=== PATIENT | male | born 1945 | race African-American/Black ===

== ENCOUNTER 2017-04-29 13:16 | Emergency (ER) | payer MEDICARE | END 2017-04-29 15:38 | disposition home or self-care (01) | LOC: MADERS 13:16 | DX: F43.0 Acute stress reaction (principal); I10 Essential (primary) hypertension; E11.9 Type 2 diabetes mellitus without complications; F41.9 Anxiety disorder, unspecified; F20.9 Schizophrenia, unspecified; Z79.84 Long term (current) use of oral hypoglycemic drugs; Z79.82 Long term (current) use of aspirin; Z79.899 Other long term (current) drug therapy | CPT/HCPCS: 99284 ==

== ENCOUNTER 2019-08-27 20:02 | Emergency (ER) | payer MEDICARE ==
--- NOTE | 2019-08-27 20:46 | CT ---
CT Brain WO Con History: Trauma Comparison: None. Findings: No acute hemorrhage or infarct. No midline shift or mass effect. Ventricular size and extra -axial CSF spaces are normal. Since mucosal thickening right maxillary sinus with near-complete opacification. Globes are intact. Impression: No acute posttraumatic intracranial sequelae.
--- NOTE | 2019-08-27 20:48 | CT ---
CT Cervical Spine WO Con History: Trauma Comparison: None. Findings: The occipital condyles are intact. The odontoid process is intact. Nuchal ligament ossifica tion, chronic in nature. Multifocal Schmorl's nodes and degenerative disc space disease, greatest at C5-T1. Large anterior vanessa dging osteophytes C3-T1 No acute traumatic facet joint widening. Dense calcifications of both carotid bulbs/proximal internal carotid arteries. The lung apices are clear. Impression: Extensive degenerative changes. No acute fracture or malalignment of the cervical spine.
[2019-08-27] MEDS ORDERED: Adacel (T-DAP) 0.5 ML SYRINGE ONE (20:59)
== END 2019-08-27 21:36 | disposition home or self-care (01) ==
LOC: MADERS 20:02
DX: S06.0X0A Concussion without loss of consciousness, initial encounter (principal); S01.01XA Laceration without foreign body of scalp, initial encounter; E11.9 Type 2 diabetes mellitus without complications; I10 Essential (primary) hypertension; K21.9 Gastro-esophageal reflux disease without esophagitis; F41.9 Anxiety disorder, unspecified; F20.9 Schizophrenia, unspecified; Z79.891 Long term (current) use of opiate analgesic; Z79.899 Other long term (current) drug therapy; Z79.82 Long term (current) use of aspirin; Z79.84 Long term (current) use of oral hypoglycemic drugs; Z23 Encounter for immunization; W22.8XXA Striking against or struck by other objects, initial encounter
CPT/HCPCS: 70450; 72125; 90471; 90715

== ENCOUNTER 2019-10-24 00:25 | Emergency (ER) | payer MEDICARE ==
[2019-10-24] MEDS ORDERED: Acetaminophen 500 MG TAB ONE (01:03)
--- NOTE | 2019-10-24 11:39 | RAD ---
EXAM: Chest Two Views 10/24/2019 7:56 AM HISTORY: Cough COMPARISON: Single view chest radiograph dated January 15, 2014 FINDINGS: Heart: Mild cardiomegaly is stable Pulmonary vessels: Normal. Costophrenic angles: Clear. Lungs: No acute airspace consolidation. Pneumothorax: None. Osseous structures:Intact. There is scattered degenerative and osteoarthritic change present. Additional findings: None. IMPRESSION: Stable mild cardiomegaly. No acute cardiopulmonary abnormality.
== END 2019-10-24 01:19 | disposition home or self-care (01) ==
LOC: MADERS 00:25
DX: J06.9 Acute upper respiratory infection, unspecified (principal); E11.9 Type 2 diabetes mellitus without complications; I10 Essential (primary) hypertension; F41.9 Anxiety disorder, unspecified; F20.9 Schizophrenia, unspecified; F17.210 Nicotine dependence, cigarettes, uncomplicated; Z71.6 Tobacco abuse counseling; Z79.84 Long term (current) use of oral hypoglycemic drugs; Z79.899 Other long term (current) drug therapy
CPT/HCPCS: 71046; 87804; 99406

== ENCOUNTER 2020-08-17 14:04 | Emergency (ER) | payer MEDICARE ==
--- NOTE | 2020-08-17 14:59 | RAD ---
Chest AP view INDICATION: Chest pain with shortness of breath COMPARISON: October 24, 2019 FINDINGS: Lungs: The lungs are clear Cardiac silhouette: Stable mild cardiomegaly Pulmonary vasculature: Normal Pleural spaces: No pleural effusion or pneumothorax is demonstrated. Upper abdomen: No abnormality seen. Osseous structures: No acute osseous abnormality. Additional findings: None. IMPRESSION: Stable mild cardiomegaly
[2020-08-17 15:09] LABS: Eosinophils 2 % (0-10); Hemoglobin 13.2 g/dL (14.0-18.0); Lymphocytes 24 % (21-51); MDiff Complete? YES; Mean Corpuscular HGB CONC 31.8 g/dL (32.0-36.0); Mean Corpuscular Hemoglobin 27.4 pg (27.0-31.0); Mean Platelet Volume 6.8 fL (7.4-10.4); Monocytes 2 % (0-10); Neutrophil 35 % (42-75); Platelet Count 321 thou/uL (130-400); Platelet Morphology Comment Appears Adequate; RBC Distribution Width 14.5 % (11.5-14.5); Reactive Lymphocytes 37 % (0-10); Red Blood Cell (RBC) Count 4.82 mill/uL (4.70-6.10); Reflex for Review?? NO; White Blood Cell (WBC) Count 7.2 thou/uL (4.8-10.8)
[2020-08-17 15:11] LABS: ALT (SGPT) 13 U/L (8-55); AST (SGOT) 19 U/L (5-34); Albumin 3.8 g/dL (3.4-4.8); Alkaline Phosphatase 70 U/L (40-110); Anion Gap 19 mmol/L (10-20); BUN (Urea Nitrogen) 14 mg/dL (8.4-25.7); Bilirubin, Total 0.4 mg/dL (0.2-1.2); Calc. Creatinine Clearance 0 mL/min (70-130); Calcium 8.9 mg/dL (7.8-10.44); Carbon Dioxide 19 mmol/L (23-31); Chloride 105 mmol/L (98-107); Estimated GFR-MDRD 56; Globulin 3.4 g/dL (2.4-3.5); Glucose 167 mg/dL (83-110); Magnesium 1.7 mg/dL (1.6-2.6); Potassium 3.9 mmol/L (3.5-5.1); Protein, Total 7.2 g/dL (5.8-8.1); Sodium 139 mmol/L (136-145)
[2020-08-17] MEDS ORDERED: Aspirin Chewable 81 MG TAB ONE (16:09)
[2020-08-17] MEDS ORDERED: Furosemide 20 MG/2 ML VIAL ONE (16:09)
== END 2020-08-17 17:08 | disposition short-term general hospital (02) ==
LOC: MADERS 14:04
DX: I11.0 Hypertensive heart disease with heart failure (principal); I50.9 Heart failure, unspecified; E87.70 Fluid overload, unspecified; I48.91 Unspecified atrial fibrillation; E11.9 Type 2 diabetes mellitus without complications; K21.9 Gastro-esophageal reflux disease without esophagitis; F41.9 Anxiety disorder, unspecified; F20.9 Schizophrenia, unspecified; F17.220 Nicotine dependence, chewing tobacco, uncomplicated; Z79.899 Other long term (current) drug therapy; Z79.82 Long term (current) use of aspirin; Z79.84 Long term (current) use of oral hypoglycemic drugs
CPT/HCPCS: 71045; 80053; 82553; 83735; 83880; 84443; 84484; 85025; 93005; 94760; 96374; J1940

== ENCOUNTER 2020-11-22 19:25 | Emergency (ER) | payer MEDICARE, SELFPAY ==
[2020-11-22 20:24] LABS: Hemoglobin 13.5 g/dL (14.0-18.0); Mean Corpuscular HGB CONC 31.4 g/dL (32.0-36.0); Mean Corpuscular Hemoglobin 27.2 pg (27.0-31.0); Mean Corpuscular Volume 86.6 fL (78.0-98.0); Mean Platelet Volume 7.2 fL (7.4-10.4); Platelet Count 317 thou/uL (130-400); RBC Distribution Width 13.6 % (11.5-14.5); Red Blood Cell (RBC) Count 4.99 mill/uL (4.70-6.10); White Blood Cell (WBC) Count 7.2 thou/uL (4.8-10.8)
[2020-11-22 20:25] LABS: #Basophils 0.1 thou/uL (0.0-0.2); #Eosinphils 0.1 thou/uL (0.0-0.7); #Lymphocytes 2.1 thou/uL (1.20-3.40); #Monocytes 0.6 thou/uL (0.11-0.59); #Neutrophils 4.2 thou/uL (1.40-6.50); %Basophils 1.3 % (0.0-1.0); %Eosinophils 1.2 % (0.0-10.0); %Lymphocytes 29.4 % (21.0-51.0); %Monocytes 8.9 % (0.0-10.0); %Neutrophils 59.2 % (42.0-75.0)
[2020-11-22 20:33] LABS: ALT (SGPT) 13 U/L (8-55); AST (SGOT) 21 U/L (5-34); Albumin 3.7 g/dL (3.4-4.8); Alkaline Phosphatase 77 U/L (40-110); Anion Gap 17 mmol/L (10-20); BUN (Urea Nitrogen) 24 mg/dL (8.4-25.7); Bilirubin, Total 0.8 mg/dL (0.2-1.2); Calc. Creatinine Clearance 0 mL/min (70-130); Calcium 9.3 mg/dL (7.8-10.44); Carbon Dioxide 18 mmol/L (23-31); Chloride 105 mmol/L (98-107); Globulin 3.8 g/dL (2.4-3.5); Glucose 123 mg/dL (83-110); Potassium 3.9 mmol/L (3.5-5.1); Protein, Total 7.5 g/dL (5.8-8.1); Sodium 136 mmol/L (136-145)
[2020-11-22 20:55] LABS: CKMB 2.6 ng/mL (0-6.6)
--- NOTE | 2020-11-22 20:57 | RAD ---
EXAM: CHEST ONE VIEW HISTORY: Chest pain COMPARISON: 08/17/2020 FINDINGS: Cardiac silhouette remains enlarged. Pulmonary vasculature is within normal limits. No consolidation or pleural fluid is appreciated. Degenerative changes are again seen in the spine. IMPRESSION: 1. Cardiomegaly. 2. No acute cardiopulmonary process.
== END 2020-11-22 23:55 | disposition home or self-care (01) ==
LOC: MADERS 19:25
DX: R00.2 Palpitations (principal); R07.2 Precordial pain; I48.91 Unspecified atrial fibrillation; I11.0 Hypertensive heart disease with heart failure; I50.9 Heart failure, unspecified; F17.220 Nicotine dependence, chewing tobacco, uncomplicated; E11.9 Type 2 diabetes mellitus without complications
CPT/HCPCS: 71045; 80053; 82553; 84484; 85025; 93005

== ENCOUNTER 2020-12-06 19:17 | Emergency (ER) | payer OTHER, MEDICARE | END 2020-12-06 20:27 | disposition home or self-care (01) | LOC: MADERS 19:17 | DX: K11.7 Disturbances of salivary secretion (principal); I50.9 Heart failure, unspecified; E11.9 Type 2 diabetes mellitus without complications; I10 Essential (primary) hypertension; F17.220 Nicotine dependence, chewing tobacco, uncomplicated | CPT/HCPCS: 99283 ==

== ENCOUNTER 2020-12-11 21:55 | Emergency (ER) | payer OTHER, MEDICARE ==
[2020-12-11 23:19] LABS: Anisocytosis SLIGHT = 6-15 cells (100X) (0-5/hpf); Hemoglobin 12.6 g/dL (14.0-18.0); Lymphocytes 17 % (21-51); MDiff Complete? YES; Mean Corpuscular HGB CONC 32.1 g/dL (32.0-36.0); Mean Corpuscular Volume 84.2 fL (78.0-98.0); Mean Platelet Volume 7.9 fL (7.4-10.4); Monocytes 4 % (0-10); Neutrophil 79 % (42-75); Platelet Count 260 thou/uL (130-400); Platelet Morphology Comment Appears Adequate; RBC Distribution Width 13.9 % (11.5-14.5); Red Blood Cell (RBC) Count 4.67 mill/uL (4.70-6.10); Target Cells SLIGHT = 2-5 cells (100X) (0-1/hpf); White Blood Cell (WBC) Count 12.3 thou/uL (4.8-10.8)
[2020-12-11 23:23] LABS: ALT (SGPT) 26 U/L (8-55); AST (SGOT) 31 U/L (5-34); Albumin 3.5 g/dL (3.4-4.8); Alcohol Less than 10 mg/dL (Less than 10); Alkaline Phosphatase 70 U/L (40-110); Anion Gap 16 mmol/L (10-20); BUN (Urea Nitrogen) 27 mg/dL (8.4-25.7); Bilirubin, Total 1.2 mg/dL (0.2-1.2); Calc. Creatinine Clearance 0 mL/min (70-130); Calcium 9.6 mg/dL (7.8-10.44); Carbon Dioxide 19 mmol/L (23-31); Chloride 108 mmol/L (98-107); Globulin 3.7 g/dL (2.4-3.5); Glucose 135 mg/dL (83-110); Potassium 4.1 mmol/L (3.5-5.1); Protein, Total 7.2 g/dL (5.8-8.1); Sodium 139 mmol/L (136-145)
[2020-12-12 00:45] LABS: Bilirubin Small (Negative); Blood, Urine Large (Negative); Clarity Clear (Clear); Glucose, Urine (Dipstick) Negative (Negative); Ketone, Urine Negative (Negative); Leukocyte Negative (Negative); Nitrite Negative (Negative); Protein, Urine (Dipstick) 100 mg/dL (Neg-Trace); Specific Gravity, Urine 1.015 (1.005-1.030); pH, Urine 5.5 (5.0-9.0)
[2020-12-12 00:52] LABS: Bacteria/HPF Rare-Few HPF (None Seen); Mucous/LPF 2+ LPF (<2+); RBC/HPF 0-3 HPF (0-3); WBC/HPF None Seen HPF (0-3)
[2020-12-12] MEDS ORDERED: cefTRIAXone\\ROCEPHIN 1 GM VIAL ONE (01:24)
[2020-12-12] MEDS ORDERED: Sodium Chloride 0.9% 100 ML ONE (01:24)
[2020-12-12 03:24] LABS: Amphetamine Not Detected (NotDetected); Barbiturates Screen Not Detected (NotDetected); Benzodiazepine Screen Detected (NotDetected); Cocaine Metabolite Screen Not Detected (NotDetected); Medtox Control Line Valid? VALID (VALID); Methadone Not Detected (NotDetected); Methamphetamine Not Detected (NotDetected); Opiate Screen Not Detected (NotDetected); Oxycodone Screen Not Detected (NotDetected); Phencyclidine (PCP) Not Detected (NotDetected); THC/Cannabinoid Screen Not Detected (NotDetected); Tricyclic Screen Detected (NotDetected)
--- NOTE | 2020-12-12 06:48 | RAD ---
PORTABLE CHEST: Date: 12/11/2020 HISTORY: Syncope. Altered mental status. COMPARISON: 11/29/2020 exam. FINDINGS: Heart size is enlarged. Bilateral lung infiltrates are noted. These changes have progressed, particul hedy in the left mid lung field. IMPRESSION: Multifocal pneumonia with worsening left-sided changes. POS: OFF
--- NOTE | 2020-12-12 07:02 | CT ---
CT OF BRAIN PERFORMED WITHOUT CONTRAST ENHANCEMENT: Date: 12/11/2020 HISTORY: Altered mental status. COMPARISON: 08/27/2019 exam. FINDINGS: The ventricular and cisternal system shows fairly age-appropriate change. There has been development of an area of decreased attenuation within the left temporal region most compatible with an area of i nfarct, age-indeterminate, but I would favor this more as a subacute finding. No hemorrhage. IMPRESSION: Area of decreased attenuation of the left temporal lobe region, left middle cerebral artery territory , somewhat difficult to assess age. It was not present on the previous CT examination and could repre sent an acute to subacute area of infarct, although it is somewhat well-defined and difficult to excl ude as an older area of ischemic insult. POS: OFF
== END 2020-12-12 02:55 | disposition home or self-care (01) ==
LOC: MADERS 21:55
DX: N30.01 Acute cystitis with hematuria (principal); R41.82 Altered mental status, unspecified; I10 Essential (primary) hypertension; F17.210 Nicotine dependence, cigarettes, uncomplicated
CPT/HCPCS: 36415; 70450; 71045; 80053; 80306; 80307; 81003; 81015; 85025; 96374; J0696; J3490

== ENCOUNTER 2020-12-13 15:47 | Emergency (ER) | payer MEDICARE, OTHER ==
[2020-12-13 16:32] LABS: #Basophils 0.1 thou/uL (0.0-0.2); #Lymphocytes 1.2 thou/uL (1.20-3.40); #Monocytes 0.7 thou/uL (0.11-0.59); #Neutrophils 9.2 thou/uL (1.40-6.50); %Basophils 0.5 % (0.0-1.0); %Eosinophils 0.1 % (0.0-10.0); %Lymphocytes 10.5 % (21.0-51.0); %Monocytes 6.4 % (0.0-10.0); %Neutrophils 82.3 % (42.0-75.0); Hemoglobin 11.7 g/dL (14.0-18.0); Mean Corpuscular HGB CONC 32.8 g/dL (32.0-36.0); Mean Corpuscular Hemoglobin 27.6 pg (27.0-31.0); Mean Corpuscular Volume 84.1 fL (78.0-98.0); Mean Platelet Volume 7.6 fL (7.4-10.4); Platelet Count 253 thou/uL (130-400); RBC Distribution Width 13.5 % (11.5-14.5); Red Blood Cell (RBC) Count 4.25 mill/uL (4.70-6.10); White Blood Cell (WBC) Count 11.1 thou/uL (4.8-10.8)
--- NOTE | 2020-12-13 16:32 | RAD ---
Chest one view HISTORY: Pneumonia. Follow-up. COMPARISON: 12/11/2020. FINDINGS: Cardiac silhouette is magnified, enlarged, and left margin partially obscured by increasing left upper lobe infiltrate. Mediastinum is midline. Pulmonary vasculature upper limits of normal. Other ill-defined patchy areas of parenchymal infiltrate throughout each lung are slightly more dense . No evidence of pneumothorax. IMPRESSION : Radiographic progression of multifocal infiltrates.
[2020-12-13 16:43] LABS: ALT (SGPT) 31 U/L (8-55); AST (SGOT) 35 U/L (5-34); Albumin 3.2 g/dL (3.4-4.8); Alkaline Phosphatase 86 U/L (40-110); Anion Gap 18 mmol/L (10-20); BUN (Urea Nitrogen) 41 mg/dL (8.4-25.7); Bilirubin, Total 1.1 mg/dL (0.2-1.2); Calc. Creatinine Clearance 0 mL/min (70-130); Calcium 9.3 mg/dL (7.8-10.44); Carbon Dioxide 20 mmol/L (23-31); Chloride 104 mmol/L (98-107); Globulin 3.8 g/dL (2.4-3.5); Glucose 133 mg/dL (83-110); Potassium 3.8 mmol/L (3.5-5.1); Sodium 138 mmol/L (136-145)
[2020-12-13 17:10] LABS: Bilirubin Small (Negative); Blood, Urine Large (Negative); Glucose, Urine (Dipstick) Negative (Negative); Ketone, Urine Negative (Negative); Leukocyte Negative (Negative); Nitrite Negative (Negative); Protein, Urine (Dipstick) 100 mg/dL (Neg-Trace); Specific Gravity, Urine 1.015 (1.005-1.030); pH, Urine 5.5 (5.0-9.0)
[2020-12-13 17:11] LABS: Clarity Hazy (Clear)
[2020-12-13 17:12] LABS: Bacteria/HPF Rare-Few HPF (None Seen); Squamous Epithelial 0-3 HPF (0-3); WBC/HPF 0-3 HPF (0-3)
[2020-12-13 17:17] LABS: CKMB 2.2 ng/mL (0-6.6)
[2020-12-13] MEDS ORDERED: Azithromycin 500 MG VIAL ONE (17:27)
[2020-12-13] MEDS ORDERED: Sodium Chloride 0.9% 1,000 ML ONE ×2 (17:27→17:45)
[2020-12-13] MEDS ORDERED: Aspirin Chewable 81 MG TAB ONE (17:27)
[2020-12-13] MEDS ORDERED: cefTRIAXone\\ROCEPHIN 2 GM VIAL ONE (17:27)
[2020-12-13] MEDS ORDERED: Sodium Chloride 0.9% 100 ML ONE (17:28)
[2020-12-13] MEDS ORDERED: Sodium Chloride 0.9% 250 ML 250 ML ONE (17:28)
[2020-12-13 19:05] LABS: Lactic Acid 2.5 mmol/L (0.5-2.2)
== END 2020-12-13 19:03 | disposition short-term general hospital (02) ==
LOC: MADERS 15:47
DX: R41.82 Altered mental status, unspecified (principal); R06.03 Acute respiratory distress; I10 Essential (primary) hypertension; E11.9 Type 2 diabetes mellitus without complications; F17.210 Nicotine dependence, cigarettes, uncomplicated; F17.220 Nicotine dependence, chewing tobacco, uncomplicated; Z79.899 Other long term (current) drug therapy
CPT/HCPCS: 36415; 71045; 80053; 81003; 81015; 82553; 83605; 84484; 85025; 87040; 87086; 93005; 94760; 96365; 96367; J0456; J0696; J3490; J7050